=== PATIENT | female | born 1930 | race Caucasian/White ===

== ENCOUNTER → 2016-06-26 | Outpatient (CLI) | payer MEDICARE, OTHER ==
[~2016-06-26] MED LIST: ADULT LOW DOSE81 MG PO; AMIODARONE HCL100 MG PO; CALTRATE 600 WI1 TAB PO; COREG12.5 MG PO; ELIQUIS2.5 MG PO; KLOR-CON M1010 MEQ PO; LASIX20 M1 PO; LIPITOR20 MG PO; NITROSTAT0.4 MG SL; NORCO 5-325 TA1 EACH PO; NORVASC5 MG PO; PREDNISONE5 MG PO; PRILOSEC20 MG PO; REFRESH PLUS1 EACH EYEBOTH; SENNA-S TABLET1 EACH PO; SYNTHROID25 MCG PO; TYLENOL325 MG PO; TYLENOL500 MG PO; ULTRAM50 MG PO; ZOFRAN4 M1 PO
== END | disposition short-term general hospital (02) ==
LOC: CLORTH 08:59
DX: M25.512 Pain in left shoulder (principal)

== ENCOUNTER → 2016-08-07 | Outpatient (CLI) | payer MEDICARE, OTHER | END | disposition short-term general hospital (02) | LOC: CLORTH 09:24 → EDSTATUS 13:54 → RAD 13:54 → CLORTH 13:56 | DX: Z47.1 Aftercare following joint replacement surgery (principal); Z96.612 Presence of left artificial shoulder joint ==

== ENCOUNTER → 2016-08-30 | Outpatient (CLI) | payer MEDICARE, OTHER | END | disposition short-term general hospital (02) | LOC: CLCARD 11:23 | DX: I11.0 Hypertensive heart disease with heart failure (principal); I50.30 Unspecified diastolic (congestive) heart failure; I25.10 Atherosclerotic heart disease of native coronary artery without angina pectoris; I35.0 Nonrheumatic aortic (valve) stenosis; I48.0 Paroxysmal atrial fibrillation; I27.2 Other secondary pulmonary hypertension; E78.5 Hyperlipidemia, unspecified ==

== ENCOUNTER → 2016-09-04 | Outpatient (CLI) | payer MEDICARE, OTHER | END | disposition short-term general hospital (02) | LOC: CLORTH 12:50 | DX: Z47.1 Aftercare following joint replacement surgery (principal); Z96.612 Presence of left artificial shoulder joint ==

== ENCOUNTER 2016-09-11 09:31 | Day surgery (SDC) | payer MEDICARE, OTHER ==
[~2016-09-11] VITALS: Ht 165.1 cm; Wt 69.4 kg
[~2016-09-11 09:31] MED LIST changes: -AMIODARONE HCL100 MG PO; -ELIQUIS2.5 MG PO; -NORCO 5-325 TA1 EACH PO; -REFRESH PLUS1 EACH EYEBOTH; -SENNA-S TABLET1 EACH PO; -SYNTHROID25 MCG PO; -TYLENOL500 MG PO; -ZOFRAN4 M1 PO
[2016-12-07] MEDS ORDERED: TYLENOL500 MG PO (09:45)
[2016-12-07] MEDS ORDERED: AMIODARONE HCL100 MG PO (09:46)
[2016-12-07] MEDS ORDERED: ELIQUIS2.5 MG PO (09:47)
[2016-12-07] MEDS ORDERED: NORCO 5-325 TA1 EACH PO (09:48)
[2016-12-07] MEDS ORDERED: SENNA-S TABLET1 EACH PO (09:50)
[2016-12-07] MEDS ORDERED: REFRESH PLUS1 EACH EYEBOTH (09:54)
[2016-12-07] MEDS ORDERED: ZOFRAN4 M1 PO (09:55)
[2017-01-08] MEDS ORDERED: SYNTHROID25 MCG PO (22:21)
== END 2016-09-11 12:45 | disposition short-term general hospital (02) ==
LOC: SURGOP 09:31
PROC: 0WQF0ZZ Repair Abdominal Wall, Open Approach (ICD-10-PCS; principal; 2016-09-11)
DX: K43.6 Other and unspecified ventral hernia with obstruction, without gangrene (principal); K59.00 Constipation, unspecified; I48.91 Unspecified atrial fibrillation; I25.10 Atherosclerotic heart disease of native coronary artery without angina pectoris; I50.30 Unspecified diastolic (congestive) heart failure; K21.9 Gastro-esophageal reflux disease without esophagitis; E78.5 Hyperlipidemia, unspecified; I11.0 Hypertensive heart disease with heart failure; M19.90 Unspecified osteoarthritis, unspecified site; M35.3 Polymyalgia rheumatica; Z96.611 Presence of right artificial shoulder joint; Z88.6 Allergy status to analgesic agent; Z79.82 Long term (current) use of aspirin; Z79.891 Long term (current) use of opiate analgesic; Z79.899 Other long term (current) drug therapy; Z79.01 Long term (current) use of anticoagulants; Z86.718 Personal history of other venous thrombosis and embolism; Z86.711 Personal history of pulmonary embolism; Z95.1 Presence of aortocoronary bypass graft; Z98.49 Cataract extraction status, unspecified eye; Z96.659 Presence of unspecified artificial knee joint; Z96.642 Presence of left artificial hip joint
CPT/HCPCS: J0690; J2250; J2405; J3010

== ENCOUNTER → 2016-09-25 | Outpatient (CLI) | payer MEDICARE, OTHER ==
[~2016-09-25] MED LIST changes: +AMIODARONE HCL100 MG PO; +ELIQUIS2.5 MG PO; +NORCO 5-325 TA1 EACH PO; +REFRESH PLUS1 EACH EYEBOTH; +SENNA-S TABLET1 EACH PO; +SYNTHROID25 MCG PO; +TYLENOL500 MG PO; +ZOFRAN4 M1 PO
== END | disposition short-term general hospital (02) ==
LOC: CLSURG 09-18 15:19
DX: Z48.815 Encounter for surgical aftercare following surgery on the digestive system (principal); Z87.19 Personal history of other diseases of the digestive system